=== PATIENT | female | born 1985 | race Hispanic/Latino ===

== ENCOUNTER 2017-10-11 17:45 | Emergency (ER) | payer SELFPAY | END 2017-10-11 17:47 | disposition home or self-care (01) | LOC: ERS 17:45 | DX: L03.116 Cellulitis of left lower limb (principal) | CPT/HCPCS: 99282 ==

== ENCOUNTER 2018-07-27 19:47 | Inpatient (IN) | payer SELFPAY ==
[2018-07-27] MEDS ORDERED: Piperacillin/Tazobactam 4.5 GM VIAL ONE (20:19)
[2018-07-27 20:39] LABS: #Lymphocytes 1.1 thou/uL (1.20-3.40); #Monocytes 0.6 thou/uL (0.11-0.59); #Neutrophils 9.7 thou/uL (1.40-6.50); %Basophils 0.4 % (0.0-1.0); %Eosinophils 0.1 % (0.0-10.0); %Lymphocytes 9.7 % (21.0-51.0); %Monocytes 5.2 % (0.0-10.0); %Neutrophils 84.6 % (42.0-75.0); Mean Corpuscular HGB CONC 32.3 g/dL (32.0-36.0); Mean Corpuscular Hemoglobin 28.7 pg (27.0-31.0); Mean Corpuscular Volume 88.8 fL (78.0-98.0); Mean Platelet Volume 8.3 fL (7.4-10.4); Platelet Count 189 thou/uL (130-400); RBC Distribution Width 13.2 % (11.5-14.5); Red Blood Cell (RBC) Count 5.22 mill/uL (4.20-5.40); White Blood Cell (WBC) Count 11.4 thou/uL (4.8-10.8)
--- NOTE | 2018-07-27 20:40 | RAD ---
AP view chest. HISTORY: Chest and abdominal pain. AP view chest is obtained. Cardiomegaly seen. Pulmonary vascular congestion seen. No definite evidenc e of effusion seen. Exam is limited due to the patient's large body habitus. IMPRESSION: Cardiomegaly and pulmonary vascular congestion.
[2018-07-27 20:44] LABS: BHCG - Serum Negative (NEGATIVE); Pregs Control Background? CLEAR/WHITE (CLR/WHITE); Pregs Control Bar Appear? YES (CONTROL BAR)
[2018-07-27 21:00] LABS: Bilirubin Small (Negative); Blood, Urine Negative (Negative); Clarity CLOUDY (Clear); Glucose, Urine (Dipstick) Negative (Negative); Leukocyte Negative (Negative); Nitrite Negative (Negative); Protein, Urine (Dipstick) 100 mg/dL (Neg-Trace); Specific Gravity, Urine 1.021 (1.002-1.036); pH, Urine 5.5 (5.0-9.0)
[2018-07-27 21:01] LABS: ALT (SGPT) 39 U/L (8-55); AST (SGOT) 27 U/L (5-34); Albumin 3.7 g/dL (3.5-5.0); Alkaline Phosphatase 57 U/L (40-150); Anion Gap 10 mmol/L (10-20); BUN (Urea Nitrogen) 9 mg/dL (7.0-18.7); Bilirubin, Total 1.2 mg/dL (0.2-1.2); Calc. Creatinine Clearance 0 mL/min (70-130); Calcium 9.2 mg/dL (7.8-10.44); Carbon Dioxide 33 mmol/L (22-29); Chloride 98 mmol/L (98-107); Estimated GFR-MDRD 87; Globulin 4.2 g/dL (2.4-3.5); Glucose 106 mg/dL (70-105); Potassium 3.6 mmol/L (3.5-5.1); Protein, Total 7.9 g/dL (6.0-8.3); Sodium 137 mmol/L (136-145)
[2018-07-27 21:03] LABS: Bacteria/HPF None Seen HPF (None Seen); Hyaline Casts/LPF 7-10 HYALINE CAST LPF (0-3 Hyaline); Pathc Cast-AUWi Flag 1.08 (0-2.49); RBC/HPF 0-3 HPF (0-3); Squamous Epithelial 0-3 HPF (0-3); WBC/HPF 0-3 HPF (0-3)
[2018-07-27 21:12] LABS: Thyroid Stimulating Hormone 1.5677 uIU/mL (0.35-4.94)
[2018-07-27] MEDS ORDERED: Acetaminophen 650 MG Suppository PR PRN (22:38)
[2018-07-27] MEDS ORDERED: Acetaminophen 325 MG TAB PO PRN (22:38)
[2018-07-27] MEDS ORDERED: Ondansetron PF 4 MG/2 ML Vial IVP PRN (22:38)
[2018-07-27] MEDS ORDERED: Ondansetron ODT 4 MG TAB PO PRN (22:38)
--- NOTE | 2018-07-28 00:32 | HP ---
PRIMARY CARE PHYSICIAN: None reported. CODE STATUS: Full code. TIME OF EVALUATION: 10:10 p.m. CHIEF COMPLAINT: Abdominal pain and redness, and fever. HISTORY OF PRESENT ILLNESS: This is a 33-year-old female patient with past medical history of morbid obesity. The patient is almost unable to walk due to her weight, who weighed 120 kg, came to the hospital after having significant redness, swelling, tumefaction, change in skin texture in all the lower abdomen area. The patient has 2 different small ulcerations. She does not recall what happened and she stated that this has been going on for the past 2 days. It is associated with tenderness, reportedly 7/10. REVIEW OF SYSTEMS: CONSTITUTIONAL: The patient has fever, chills, generalized weakness. RESPIRATORY: No cough, sputum production, or shortness of breath. CARDIOVASCULAR: No chest pain or palpitation. GASTROINTESTINAL: No nausea, vomiting, or diarrhea. No abdominal pain. CLINICAL NURSE LEADER: No dizziness, headache, or feeling lightheaded. GENITOURINARY: No burning on urination. EXTREMITIES: No leg swelling. SKIN: The patient has significant redness, tumefaction, change in texture in the lower abdominal area. All other systems were reviewed and negative except for the findings mentioned above. PAST MEDICAL HISTORY: As mentioned in the HPI. PAST SURGICAL HISTORY: The patient has history of and tubal ligation. PSYCHIATRIC HISTORY: No previous psych history. SOCIAL HISTORY: The patient denies alcohol use. No drug use. No smoking history. FAMILY HISTORY: Reviewed and noncontributory for current presentation. KNOWN ALLERGIES: No known drug allergies. REPORTED MEDICATIONS: None. PHYSICAL EXAMINATION: VITAL SIGNS: On presentation; blood pressure 133/81 with heart rate 114, respiratory rate was 22, and temperature 99.1. GENERAL APPEARANCE: The patient is morbidly obese and almost unable to mobilize herself. She is alert, oriented, not in acute distress. HEAD, EYES, EARS, NOSE, AND THROAT: Eyes, normal conjunctivae. Moist oral mucosa. Anicteric. No JVD. RESPIRATORY: Bilateral air entry. No rales. No wheezes. Symmetric expansion. CARDIOVASCULAR: Normal rate, regular rhythm. No murmurs. No gallop. No edema. ABDOMEN: The patient is morbidly obese with significant abdominal fat. The patient has redness, tumefaction, change in the skin texture and nonhealing ulcers in the lower abdominal area. The area is large and measures probably about 10 to 12 inches, is tender. MUSCULOSKELETAL: Baseline range of motion and strength. No tenderness. The patient has bilateral lower extremity skin texture changes and some edema. SKIN: Please see the description above. Peripheral pulses are present. Capillary refill seems to be intact. NEURO: No evidence of any new focal weakness. Baseline speech. Cranial nerves seem to be intact. PSYCH: The patient is in good mood. No anxiety. Optimal judgment. DIAGNOSTIC STUDIES: EKG was reviewed. The patient has sinus tachycardia at the rate of 104, [place] 154, QRS 62, QT corrected 439, low-voltage QRS. LABORATORY DATA: Labs were reviewed. The patient has a white count 11.4, MCV 88.8, platelet count 189. Chemistry; sodium 137, potassium 3.6, chloride 98, carbon dioxide 33, anion gap 10, BUN 9, creatinine 0.76, GFR 87, glucose 106. Lactic acid 1.9. LFTs were negative. Globulin 4.2. TSH 1.5. Albumin to globulin ratio 0.9. Urine was done and was negative. IMAGING STUDIES: Chest x-ray was done, she has cardiomegaly and pulmonary vascular congestion. ASSESSMENT AND PLAN: The patient will be placed in the hospital with following medical problems: 1. Morbidly obese, weight loss is advised. The patient may need medical assistance for this reason, due to morbid BMI. 2. Abdominal wall cellulitis that is extensive, has nonhealing ulcers. We will place on antibiotics. We will monitor. We have arranged to see the patient can have an open CT of the abdomen to see if there is any deep tissue involvement in the current presentation. If that is the case, then we may need to consult Surgery for any further recommendations. 3. Deep venous thrombosis prophylaxis. Job ID: [id number] MTDD
[2018-07-28 02:25] VITALS: BMI 51.5
[2018-07-28] MEDS: Vancomycin HCl 1 GM in Premix Bag 1 BAG IVPB SCH ×2 (04:00→04:14)
[2018-07-28] MEDS: Piperacillin/Tazobactam 4.5 GM in Sodium Chloride 0.9% 100 ML IVPB SCH ×3 (05:27→21:13)
[2018-07-28] MEDS: Enoxaparin Sodium 40 MG/0.4 ML SYRINGE SC SCH (08:35)
[2018-07-28 10:00] LABS: #Eosinphils 0.1 thou/uL (0.0-0.7); #Lymphocytes 1.1 thou/uL (1.20-3.40); #Monocytes 0.6 thou/uL (0.11-0.59); #Neutrophils 6.8 thou/uL (1.40-6.50); %Basophils 0.1 % (0.0-1.0); %Eosinophils 0.9 % (0.0-10.0); %Lymphocytes 12.4 % (21.0-51.0); %Monocytes 7.2 % (0.0-10.0); %Neutrophils 79.4 % (42.0-75.0); Hemoglobin 14.2 g/dL (12.0-16.0); Mean Corpuscular HGB CONC 31.4 g/dL (32.0-36.0); Mean Corpuscular Hemoglobin 28.5 pg (27.0-31.0); Mean Corpuscular Volume 90.6 fL (78.0-98.0); Mean Platelet Volume 8.4 fL (7.4-10.4); Platelet Count 177 thou/uL (130-400); RBC Distribution Width 13.3 % (11.5-14.5); Red Blood Cell (RBC) Count 4.99 mill/uL (4.20-5.40); White Blood Cell (WBC) Count 8.6 thou/uL (4.8-10.8)
[2018-07-28 10:21] LABS: Anion Gap 11 mmol/L (10-20); BUN (Urea Nitrogen) 7 mg/dL (7.0-18.7); Calc. Creatinine Clearance 215 mL/min (70-130); Calcium 8.8 mg/dL (7.8-10.44); Carbon Dioxide 30 mmol/L (22-29); Chloride 98 mmol/L (98-107); Estimated GFR-MDRD Greater than 90; Glucose 129 mg/dL (70-105); Potassium 3.6 mmol/L (3.5-5.1); Sodium 135 mmol/L (136-145)
[2018-07-28] MEDS: Vancomycin HCl 1.75 GM in Sodium Chloride 0.9% 500 ML IVPB SCH ×2 (11:52→23:38)
--- NOTE | 2018-07-28 14:56 | PDOC.PN ---
- Subjective Encounter Start Date: 07/28/18 Encounter Start Time: 14:50 Subjective: f/u for abdominal wall cellulitis on Vanc/Zosyn. No new complaints. - Objective Resuscitation Status - Order Detail: 07/27/18 22:38 Resuscitation Status Routine Resuscitation Status: FULL: Full Resuscitation MAR Reviewed: Yes Vital Signs & Weight: Vital Signs (12 hours) Temp Pulse Resp BP BP Pulse Ox 07/28/18 08:35 94 L 07/28/18 07:15 99.1 F 91 22 H 141/71 H 94 L 07/28/18 06:47 97.6 F 81 18 129/83 95 Weight Weight 264 lb 0.057 oz I&O: 07/27/18 07/28/18 07/29/18 06:59 06:59 06:59 Intake Total 800 Balance 800 Result Diagrams: 07/28/18 09:36 07/28/18 09:36 Additional Labs: Microbiology 07/27/18 20:26 Venous blood - Right Hand Blood Culture - Preliminary Specimen has been received and culture in progress. No Growth to date. 07/27/18 20:26 Venous blood - Left Arm Blood Culture - Preliminary Specimen has been received and culture in progress. No Growth to date. Laboratory Tests 07/27/18 07/27/18 07/27/18 20:26 20:26 20:26 WBC 11.4 H Neutrophils % 84.6 H Lactic Acid B-Natriuretic Peptide 44.8 TSH 3rd Generation 1.5677 Serum , Qual Negative 07/27/18 07/28/18 20:28 09:36 WBC Neutrophils % 79.4 H Lactic Acid 1.8 B-Natriuretic Peptide TSH 3rd Generation Serum , Qual Radiology Reviewed by me: Yes (PCXR - pulm vasc prominence, cardiomegaly) Phys Exam - Physical Examination Constitutional: NAD HEENT: PERRLA, moist MMs, sclera anicteric, oral pharynx no lesions Neck: no nodes, no JVD, supple, full ROM Respiratory: no wheezing, no rales, no rhonchi, clear to auscultation bilateral S1, S2 Cardiovascular: RRR, no significant murmur, no rub, gallop morbidly obese, pannus with diffuse erythema, excoriations, dimpling Gastrointestinal: soft, no distention, positive bowel sounds Musculoskeletal: no edema, pulses present Neurological: normal sensation, moves all 4 limbs Psychiatric: A&O x 3 Skin: normal turgor, cap refill <2 seconds Dx/Plan (1) Abdominal wall cellulitis Code(s): L03.311 - CELLULITIS OF ABDOMINAL WALL Status: Acute Comment: Continue Vanc/Zosyn, pain control, encourage weight loss (2) Hyperglycemia Code(s): R73.9 - HYPERGLYCEMIA, UNSPECIFIED Status: Acute Comment: Serial monitoring, check A1C level (3) Elevated blood pressure reading Code(s): R03.0 - ELEVATED BLOOD-PRESSURE READING, W/O DIAGNOSIS OF HTN Status : Acute Comment: Continue serial BP monitoring (4) Morbid obesity Code(s): E66.01 - MORBID (SEVERE) OBESITY DUE TO EXCESS CALORIES Status: Chronic Comment: Encourage weight loss strategy - Plan plan discussed w/ family, continue antibiotics, social worker delinquency prevention, out of bed/ ambulate, DVT proph w/SCDs Stable currently -: Continue Vancomycin/Zosyn -: Weight loss options -: Serial BP monitoring -: AM lab: BMP, CBC, A1C * .
[2018-07-29] MEDS: Piperacillin/Tazobactam 4.5 GM in Sodium Chloride 0.9% 100 ML IVPB SCH ×3 (04:30→23:36)
[2018-07-29 05:28] LABS: Hemoglobin A1c 5.9 % (4.0-6.0)
[2018-07-29 05:43] LABS: Anion Gap 10 mmol/L (10-20); BUN (Urea Nitrogen) 10 mg/dL (7.0-18.7); Calc. Creatinine Clearance 209 mL/min (70-130); Calcium 8.9 mg/dL (7.8-10.44); Carbon Dioxide 29 mmol/L (22-29); Chloride 100 mmol/L (98-107); Estimated GFR-MDRD Greater than 90; Glucose 117 mg/dL (70-105); Potassium 4.1 mmol/L (3.5-5.1); Sodium 135 mmol/L (136-145)
[2018-07-29 05:58] LABS: Band 20 % (5-11); Eosinophils 3 % (0-10); Hemoglobin 13.7 g/dL (12.0-16.0); Lymphocytes 15 % (21-51); MDiff Complete? YES; Mean Corpuscular HGB CONC 30.6 g/dL (32.0-36.0); Mean Corpuscular Volume 91.2 fL (78.0-98.0); Mean Platelet Volume 8.6 fL (7.4-10.4); Monocytes 6 % (0-10); Neutrophil 56 % (42-75); Platelet Count 186 thou/uL (130-400); Red Blood Cell (RBC) Count 4.89 mill/uL (4.20-5.40); White Blood Cell (WBC) Count 8.5 thou/uL (4.8-10.8)
[2018-07-29] MEDS: Enoxaparin Sodium 40 MG/0.4 ML SYRINGE SC SCH (08:00)
[2018-07-29] MEDS ORDERED: Nystatin Powder 15 GM BOT TOP PRN (09:28)
[2018-07-29 11:47] LABS: Vancomycin, Trough 7.3 ug/mL
[2018-07-29] MEDS: Vancomycin HCl 1.75 GM in Sodium Chloride 0.9% 500 ML IVPB SCH ×2 (11:50→20:38)
--- NOTE | 2018-07-29 12:36 | PDOC.PN ---
- Subjective Encounter Start Date: 07/29/18 Encounter Start Time: 12:35 Subjective: f/u for abd wall cellulitis on Zosyn/Vancomycin. No new complaints. - Objective Resuscitation Status - Order Detail: 07/27/18 22:38 Resuscitation Status Routine Resuscitation Status: FULL: Full Resuscitation MAR Reviewed: Yes Vital Signs & Weight: Vital Signs (12 hours) Temp Pulse Resp BP Pulse Ox 07/29/18 11:42 98.1 F 82 20 155/91 H 93 L 07/29/18 08:00 100.3 F H 97 20 153/71 H 94 L 07/29/18 04:00 99.8 F H 98 20 136/86 92 L 07/29/18 01:30 98.3 F 93 20 124/84 92 L Weight Weight 264 lb 0.057 oz I&O: 07/28/18 07/29/18 07/30/18 06:59 06:59 06:59 Intake Total 800 2610 Balance 800 2610 Result Diagrams: 07/29/18 05:12 07/29/18 05:12 Additional Labs: Microbiology 07/27/18 20:26 Venous blood - Right Hand Blood Culture - Preliminary Specimen has been received and culture in progress. No Growth to date. 07/27/18 20:26 Venous blood - Left Arm Blood Culture - Preliminary Specimen has been received and culture in progress. No Growth to date. Laboratory Tests 07/27/18 07/27/18 07/27/18 20:26 20:26 20:26 WBC 11.4 H Neutrophils % 84.6 H Lactic Acid B-Natriuretic Peptide 44.8 TSH 3rd Generation 1.5677 Serum , Qual Negative 07/27/18 07/28/18 20:28 09:36 WBC Neutrophils % 79.4 H Lactic Acid 1.8 B-Natriuretic Peptide TSH 3rd Generation Serum , Qual Laboratory Tests 07/29/18 07/29/18 05:12 11:11 Hemoglobin A1c 5.9 Vancomycin Trough 7.3 Phys Exam - Physical Examination Constitutional: NAD HEENT: PERRLA, sclera anicteric, oral pharynx no lesions Neck: no nodes, no JVD, supple, full ROM Respiratory: no wheezing, no rales, no rhonchi, clear to auscultation bilateral S1, S2 Cardiovascular: RRR, no significant murmur, no rub, gallop morbidly obese diffuse pannus erythema Gastrointestinal: soft, no distention, positive bowel sounds Musculoskeletal: pulses present, edema present Neurological: normal sensation, moves all 4 limbs Psychiatric: A&O x 3 Skin: normal turgor, cap refill <2 seconds Dx/Plan (1) Abdominal wall cellulitis Code(s): L03.311 - CELLULITIS OF ABDOMINAL WALL Status: Acute Comment: Continue Vanc/Zosyn, pain control, encourage weight loss (2) Hyperglycemia Code(s): R73.9 - HYPERGLYCEMIA, UNSPECIFIED Status: Acute Comment: Serial monitoring, A1C level 5.9 (3) Elevated blood pressure reading Code(s): R03.0 - ELEVATED BLOOD-PRESSURE READING, W/O DIAGNOSIS OF HTN Status : Acute Comment: Continue serial BP monitoring (4) Morbid obesity Code(s): E66.01 - MORBID (SEVERE) OBESITY DUE TO EXCESS CALORIES Status: Chronic Comment: Encourage weight loss strategy - Plan continue antibiotics, psychotherapist social worker, out of bed/ambulate, DVT proph w/SCDs Stable currently -: Continue Zosyn/Vancomycin -: Nystatin pwd TID PRN -: Serial BP monitoring -: ? D/C in 24-48h * .
[2018-07-30] MEDS: Vancomycin HCl 1.75 GM in Sodium Chloride 0.9% 500 ML IVPB SCH ×3 (03:28→20:48)
[2018-07-30] MEDS: Piperacillin/Tazobactam 4.5 GM in Sodium Chloride 0.9% 100 ML IVPB SCH ×3 (05:28→23:41)
[2018-07-30] MEDS: Enoxaparin Sodium 40 MG/0.4 ML SYRINGE SC SCH (08:18)
[2018-07-30 12:08] LABS: Vancomycin, Trough 14.4 ug/mL
--- NOTE | 2018-07-30 17:02 | PDOC.PN ---
- Subjective Encounter Start Date: 07/30/18 Encounter Start Time: 14:40 Ms. Johnson was seen today in follow-up of Abdominal wall cellulitis. She is feeling better and has less pain. - Objective Resuscitation Status - Order Detail: 07/27/18 22:38 Resuscitation Status Routine Resuscitation Status: FULL: Full Resuscitation MAR Reviewed: Yes Vital Signs & Weight: Vital Signs (12 hours) Temp Pulse Resp BP Pulse Ox 07/30/18 08:00 90 L 07/30/18 07:42 99.3 F 92 16 132/70 90 L Weight Weight 264 lb 0.057 oz I&O: 07/29/18 07/30/18 07/31/18 06:59 06:59 06:59 Intake Total 2610 1600 Balance 2610 1600 Result Diagrams: 07/29/18 05:12 07/29/18 05:12 Phys Exam - Physical Examination HEENT: PERRLA Cardiovascular: RRR, no significant murmur, no rub Gastrointestinal: soft, non-tender, no distention, positive bowel sounds Musculoskeletal: pulses present, edema present Deviation from normal: + erythema, and induration of the lower right abdominal wall, mild warmth Dx/Plan (1) Abdominal wall cellulitis Code(s): L03.311 - CELLULITIS OF ABDOMINAL WALL Status: Acute Comment: Continue Vanc/Zosyn, pain control, encourage weight loss (2) Morbid obesity Code(s): E66.01 - MORBID (SEVERE) OBESITY DUE TO EXCESS CALORIES Status: Chronic Comment: Encourage weight loss strategy - Plan * Abdominal wall cellulitis- this is fairly extensive, but is improving. Will treat one more day with IV antibiotics * Morbid Life threatening Obesity- will consult principal java developer for calorie restriction meal plan.
[2018-07-31] MEDS: Vancomycin HCl 1.75 GM in Sodium Chloride 0.9% 500 ML IVPB SCH ×2 (04:50→11:46)
[2018-07-31] MEDS: Piperacillin/Tazobactam 4.5 GM in Sodium Chloride 0.9% 100 ML IVPB SCH ×2 (06:52→14:17)
[2018-07-31] MEDS: Enoxaparin Sodium 40 MG/0.4 ML SYRINGE SC SCH (07:53)
[2018-07-31 12:00] LABS: Vancomycin, Trough 18.7 ug/mL
--- NOTE | 2018-07-31 12:48 | PDOC.PN ---
- Subjective Encounter Start Date: 07/31/18 Encounter Start Time: 12:41 Ms. Johnson was seen today in follow-up of abdominal wall cellulitis. She does not have any new complaints. - Objective Resuscitation Status - Order Detail: 07/27/18 22:38 Resuscitation Status Routine Resuscitation Status: FULL: Full Resuscitation MAR Reviewed: Yes Vital Signs & Weight: Vital Signs (12 hours) Temp Pulse Resp BP BP Pulse Ox 07/31/18 11:34 97.9 F 72 20 131/85 94 L 07/31/18 08:00 98.2 F 73 18 144/80 H 94 L 07/31/18 01:30 92 L 07/31/18 01:00 98.0 F 79 16 136/82 76 L Weight Weight 264 lb 0.057 oz I&O: 07/30/18 07/31/18 08/01/18 06:59 06:59 06:59 Intake Total 1600 Balance 1600 Result Diagrams: 07/29/18 05:12 07/29/18 05:12 Phys Exam - Physical Examination HEENT: PERRLA Respiratory: no wheezing, no rales, no rhonchi, clear to auscultation bilateral Cardiovascular: RRR, no significant murmur, no rub Gastrointestinal: soft + mild induration and erythema Musculoskeletal: pulses present, edema present Dx/Plan (1) Abdominal wall cellulitis Code(s): L03.311 - CELLULITIS OF ABDOMINAL WALL Status: Acute Comment: Continue Vanc/Zosyn, pain control, encourage weight loss (2) Morbid obesity Code(s): E66.01 - MORBID (SEVERE) OBESITY DUE TO EXCESS CALORIES Status: Chronic Comment: Encourage weight loss strategy - Plan * Cellulitis- improved - She is clinically stable for discharge. * Obesity- discussed calorie restricted diet, information was given .
[2018-07-31 17:03] VITALS: BP 137/85; TEMP 98.2
--- NOTE | 2018-08-01 00:40 | DIS ---
DATE OF ADMISSION: 07/28/2018 DATE OF DISCHARGE: 07/31/2018 PRIMARY CARE PHYSICIAN: Dr. Bria Rich. DISCHARGE DISPOSITION: Home. PRIMARY DISCHARGE DIAGNOSES: 1. Abdominal wall cellulitis. 2. Morbid obesity with a BMI of 51.6. DISCHARGE MEDICATIONS: Augmentin 875 mg one p.o. twice a day for 10 days followed by penicillin VK 250 mg t.i.d. for 1 month. CODE STATUS: Full code. ALLERGIES: NO KNOWN DRUG ALLERGIES. HOSPITAL COURSE: Ms. Johnson is a pleasant 33-year-old female who came to the emergency room due to swelling and redness on the abdominal wall. She also had a fever. She was found to have abdominal wall cellulitis. She was started on IV antibiotics and her symptoms improved over the course of the next couple of days. She has morbid life-threatening obesity. She is 5 feet tall and 264 pounds with a BMI of 51.6. A dietitian consult was done and the patient was given information on a calorie restricted diet and will be discharged home today and she was instructed to have close outpatient followup. Job ID: [id number]
== END 2018-07-31 17:39 | disposition home or self-care (01) | DRG 603 ==
LOC: ERS 19:47 → T4-B 07-28 02:18
PROVIDERS: ADMIT Hospitalist; ATTEND Hospitalist
DX: L03.311 Cellulitis of abdominal wall (principal); Z68.43 Body mass index [BMI] 50.0-59.9, adult; E66.01 Morbid (severe) obesity due to excess calories; R73.9 Hyperglycemia, unspecified; R03.0 Elevated blood-pressure reading, without diagnosis of hypertension; Z98.51 Tubal ligation status
CPT/HCPCS: 36415; 36416; 51701; 71045; 80048; 80053; 80202; 81003; 81015; 83036; 83605; 83880; 84443; 84703; 85007; 85025; 85027; 87040; 93005; 96361; 96365; 96367; A4353; J1650; J2543; J3370; J3490; J7050

== ENCOUNTER 2019-02-01 16:44 | Inpatient (IN) | payer SELFPAY ==
[2019-02-01 17:15] LABS: Mean Corpuscular HGB CONC 32.3 g/dL (32.0-36.0); Mean Corpuscular Hemoglobin 28.6 pg (27.0-31.0); Mean Corpuscular Volume 88.7 fL (78.0-98.0); Platelet Count 189 thou/uL (130-400); RBC Distribution Width 14.1 % (11.5-14.5); Red Blood Cell (RBC) Count 5.25 mill/uL (4.20-5.40); White Blood Cell (WBC) Count 21.8 thou/uL (4.8-10.8)
[2019-02-01] MEDS ORDERED: Acetaminophen 500 MG TAB ONE (17:22)
[2019-02-01 17:32] LABS: Band 45 % (5-11); Eosinophils 1 % (0-10); Lymphocytes 4 % (21-51); MDiff Complete? YES; Metamyelocyte 7 % (0-0); Monocytes 2 % (0-10); Myelocyte 1 % (0-0); Neutrophil 40 % (42-75); Platelet Morphology Comment Appears Adequate; RBC Morphology Normal; Reflex for Review?? YES; Vacuoles SLIGHT
[2019-02-01 17:44] LABS: ALT (SGPT) 37 U/L (8-55); AST (SGOT) 39 U/L (5-34); Albumin 3.3 g/dL (3.5-5.0); Alkaline Phosphatase 86 U/L (40-110); Anion Gap 16 mmol/L (10-20); BUN (Urea Nitrogen) 15 mg/dL (7.0-18.7); Bilirubin, Total 0.8 mg/dL (0.2-1.2); Calc. Creatinine Clearance 0 mL/min (70-130); Calcium 8.8 mg/dL (7.8-10.44); Carbon Dioxide 25 mmol/L (22-29); Chloride 97 mmol/L (98-107); Estimated GFR-MDRD 59; Globulin 5.1 g/dL (2.4-3.5); Glucose 122 mg/dL (70-105); Potassium 4.6 mmol/L (3.5-5.1); Protein, Total 8.4 g/dL (6.0-8.3); Sodium 133 mmol/L (136-145)
[2019-02-01] MEDS ORDERED: Piperacillin/Tazobactam 3.375 GM VIAL ONE (19:33)
[2019-02-01 20:18] LABS: Lactic Acid 1.4 mmol/L (0.5-2.2)
[2019-02-01] MEDS ORDERED: Clindamycin/D5W 600 mg/50 ml Premix Bag ONE (20:26)
--- NOTE | 2019-02-01 21:33 | PDOC.FPRHP ---
- History of Present Illness Chief Complaint: Cellulitis History of Present Illness: Pt is a 34 yo F with history of Obesity who presents with subjective fevers and rash on abdomen. She states she started having a fever on . She felt warm to touch and she was fatigued. She continued to have fevers. She developed a rash on Sunday around noon and she said some places on her abdomen began to ooze. She had a fever again today. She took an Advil this afternoon, but continued to fever, so she decided to come to the hospital. She had a Staph infection in July where she was hospitalized for 1 week. ED Course: She received Vanc, Zosyn, and Clinda in the ED. He received 4 liters bolus. - Allergies/Adverse Reactions Allergies Allergy/AdvReac Type Severity Reaction Status Date / Time No Known Allergies Allergy Verified 02/01/19 23:08 - Home Medications Medication Instructions Recorded Confirmed Type No Known 02/01/19 02/01/19 History - History PMHx:Obesity PSHx: x4 FHx: Daughter- has no thyroid Social: Denies smoking, alcohol, drug use Allergies: NKDA - Review of Systems General: reports: fever/chills, fatigue Eyes: denies: vision changes ENT: denies: rhinorrhea Respiratory: denies: cough, shortness of breath Cardiovascular: denies: chest pain Gastrointestinal: denies: nausea, vomiting, abdominal pain Genitourinary: denies: dysuria Skin: reports: rashes, lesions Musculoskeletal: denies: pain, stiffness Neurological: denies: numbness, weakness - Vital signs BP: 102/71 HR: 102 RR: 20 Tmax: Pox: 96% on RA Wt: 208 kg - Physical Exam Constitutional: NAD, awake, alert and oriented HEENT: normocephalic and atraumatic, PERRLA, EOMI, normal nasal mucosa, MMM, oropharynx clear Neck: supple, trachea midline Heart: RRR, normal S1/S2, pulses present Lungs: CTAB Abdomen: soft -Abdomen: mild TTP Musculoskeletal: normal structure, normal tone Neurological: CN II-XII intact Skin: good turgor, capillary refill <2 seconds -Skin: Line of erythema above the umbilicus with pustules present without drainage. Stage 1 and Stage 2 ulcerations present on the buttocks. Heme/Lymphatic: no unusual bruising or bleeding, no petechia Psychiatric: normal mood and affect FMR H&P: Results - Labs Result Diagrams: 02/02/19 05:10 02/02/19 05:10 Lab results: WBC 21.8 thou/uL (4.8-10.8) H 02/01/19 17:00 Hgb 15.0 g/dL (12.0-16.0) 02/01/19 17:00 Hct 46.6 % (36.0-47.0) 02/01/19 17:00 MCV 88.7 fL (78.0-98.0) 02/01/19 17:00 Plt Count 189 thou/uL (130-400) 02/01/19 17:00 Band Neuts % (Manual) 45 % (5-11) H 02/01/19 17:00 Sodium 133 mmol/L (136-145) L 02/01/19 17:00 Potassium 4.6 mmol/L (3.5-5.1) 02/01/19 17:00 Chloride 97 mmol/L (98-107) L 02/01/19 17:00 Carbon Dioxide 25 mmol/L (22-29) 02/01/19 17:00 BUN 15 mg/dL (7.0-18.7) 02/01/19 17:00 Creatinine 1.06 mg/dL (0.6-1.1) 02/01/19 17:00 Glucose 122 mg/dL (70-105) H 02/01/19 17:00 Lactic Acid 1.4 mmol/L (0.5-2.2) 02/01/19 19:53 Calcium 8.8 mg/dL (7.8-10.44) 02/01/19 17:00 Total Bilirubin 0.8 mg/dL (0.2-1.2) 02/01/19 17:00 AST 39 U/L (5-34) H 02/01/19 17:00 ALT 37 U/L (8-55) 02/01/19 17:00 Alkaline Phosphatase 86 U/L (40-110) 02/01/19 17:00 C-Reactive Protein 36.58 mg/dL (= or < 0.5) H 02/01/19 17:00 Serum Total Protein 8.4 g/dL (6.0-8.3) H 02/01/19 17:00 Albumin 3.3 g/dL (3.5-5.0) L 02/01/19 17:00 FMR H&P: A/P - Problem List (1) Sepsis Current Visit: Yes Status: Acute Code(s): A41.9 - SEPSIS, UNSPECIFIED ORGANISM (2) Abdominal wall cellulitis Current Visit: No Status: Acute Code(s): L03.311 - CELLULITIS OF ABDOMINAL WALL Comment: Continue Vanc/Zosyn, pain control, encourage weight loss (3) Morbid obesity Current Visit: No Status: Chronic Code(s): E66.01 - MORBID (SEVERE) OBESITY DUE TO EXCESS CALORIES Comment: Encourage weight loss strategy - Plan Pt is a 34 yo F with history of Obesity who presents with subjective fevers and rash on abdomen. 1. Sepsis WBC: 21, Tachycardic, Febrile: 104 * Given 4 L of bolus in the ER * Being treated for cellulitis * Vitals Q4H * Will Monitor CBC 2. Cellulitis of the Abdomen Erythema just above the umbilicus with pustules without Drainage * Recieved Vanc, Zosyn, and Clinda in the ED * Will continue Vanc and Zosyn * Concern for possible Nec Fascia and could not obtain a CT; however, Dr. Barclay and Dr. Syed both evaluated and agreed that is unlikely * Will trend procal 3. Mild Hyponatremia Na: 133 * On NS 125 ml/h * Will monitor * No symptoms 4. Morbid Obesity * PT/OT to evaluate and treat * HHLSo diet * Diet Consult ordered Lines: Peripheral, NS 125 Diet: HHLSo Code Status: Full DVT PPx: Lovenox 40, SCDs Dispo: Inpt. LOS < 48H. Will monitor vitals. FMR H&P: Upper Level - Plan Date/Time: 02/01/192128 34 yo f with pmhx of morbid obesity, decreased mobility, and hx of cellulitis presents with abdominal redness, pain, and fever for 3 days. Vitals: T:100.4 HR 110 RR 20 BP: 100/60s O2sat: 97% on 2L PE: NAD decreased breath sounds bilaterally 2/2 body habitus decreased heat sounds 2/2 body habitus diffuse erythema surrounding RLQ to LLQ from umbilicus down, TTP, no current abscesses, prior scars on abdomen from prior skin abscesses, CS incision present , morbid obesity present, abdominal obesity no LE edema Labs: 21 wbc CRP 36 A/P: Sepsis 2/2 abdominal cellulitis- -will admit and continue vanc and zosyn, will continue mIVF, will trend procal Morbid obesity- -will [employer] on dietary changes, but pt would benefit from a GI consult outpatient for bariatric surgery. However, I think this would be a financial burden as she is uninsured. -will order PT/OT for eval and treatment DVT ppx:lovenox Diet: HH CODE: full Olaf Reynolds MD, PGY-3 Addendum - Attending - Attending Attestation Date/Time: 02/02/19 1200 I personally evaluated the patient and discussed the management with night team. I agree with the History, Examination, Assessment and Plan documented above with any addition or exceptions noted below. Patient in no distress and comfortable. Large abdominal cellulitis with [place] changes, NTTP. IV antibiotics Would consider suppressive therapy after this treatment.
[2019-02-01] MEDS ORDERED: Senokot S 8.6-50 MG TAB PO PRN (21:55)
[2019-02-01] MEDS ORDERED: Calcium Carbonate 500 MG ChewTAB PO PRN (21:55)
[2019-02-01] MEDS ORDERED: Acetaminophen 325 MG TAB PO PRN (21:55)
[2019-02-01 23:08] VITALS: BMI 81.2
[2019-02-01] MEDS: Sodium Chloride 0.9% 1,000 ML IV SCH (23:19)
[2019-02-01] MEDS ORDERED: Vancomycin HCl 1 GM in Premix Bag 1 BAG IVPB SCH (23:59)
[2019-02-02] MEDS: Piperacillin/Tazobactam 3.375 GM in Sodium Chloride 0.9% 100 ML IVPB SCH ×4 (02:28→19:42)
[2019-02-02] MEDS: Sodium Chloride 0.9% 1,000 ML IV SCH (05:45)
[2019-02-02 06:05] LABS: Band 24 % (5-11); Hemoglobin 13.3 g/dL (12.0-16.0); Lymphocytes 9 % (21-51); MDiff Complete? YES; Mean Corpuscular HGB CONC 31.6 g/dL (32.0-36.0); Mean Corpuscular Hemoglobin 28.4 pg (27.0-31.0); Mean Corpuscular Volume 89.8 fL (78.0-98.0); Mean Platelet Volume 8.5 fL (7.4-10.4); Metamyelocyte 2 % (0-0); Monocytes 4 % (0-10); Neutrophil 61 % (42-75); Platelet Count 168 thou/uL (130-400); Platelet Morphology Comment Appears Adequate; RBC Morphology Normal; Red Blood Cell (RBC) Count 4.69 mill/uL (4.20-5.40)
[2019-02-02 06:09] LABS: ALT (SGPT) 32 U/L (8-55); AST (SGOT) 25 U/L (5-34); Albumin 2.9 g/dL (3.5-5.0); Alkaline Phosphatase 78 U/L (40-110); Anion Gap 9 mmol/L (10-20); BUN (Urea Nitrogen) 17 mg/dL (7.0-18.7); Bilirubin, Total 0.9 mg/dL (0.2-1.2); Calc. Creatinine Clearance 297 mL/min (70-130); Calcium 8.1 mg/dL (7.8-10.44); Carbon Dioxide 32 mmol/L (22-29); Chloride 100 mmol/L (98-107); Estimated GFR-MDRD 75; Globulin 4.1 g/dL (2.4-3.5); Glucose 123 mg/dL (70-105); Potassium 3.8 mmol/L (3.5-5.1); Sodium 137 mmol/L (136-145)
--- NOTE | 2019-02-02 06:58 | PDOC.FM ---
- Subjective Subjective: NAEO. Patient resting comfortably sitting up in bed. She was noted to be falling asleep during conversation, snoring, and periods of apnea. Patient denies pain. - Objective MAR Reviewed: Yes Vital Signs & Weight: Vital Signs (12 hours) Temp Pulse Resp BP BP Pulse Ox 02/02/19 04:00 98.4 F 99 20 104/67 94 L 02/01/19 23:00 96 02/01/19 22:30 97.5 F L 99 20 99/63 96 Weight Weight 208.1 kg I&O: 01/31/19 02/01/19 02/02/19 06:59 06:59 06:59 Intake Total 1565 Balance 1565 Result Diagrams: 02/02/19 05:10 02/02/19 05:10 Phys Exam - Physical Examination Constitutional: NAD morbid obesity HEENT: moist MMs, sclera anicteric Neck: supple Respiratory: clear to auscultation bilateral Cardiovascular: RRR, no significant murmur, no rub Gastrointestinal: soft erythema of pannus, areas of oozing Musculoskeletal: pulses present trace edema b/l LE Neurological: non-focal, moves all 4 limbs Psychiatric: normal affect Skin: no rash, normal turgor, cap refill <2 seconds Dx/Plan (1) Abdominal wall cellulitis Code(s): L03.311 - CELLULITIS OF ABDOMINAL WALL Status: Acute (2) Hyperglycemia Code(s): R73.9 - HYPERGLYCEMIA, UNSPECIFIED Status: Acute (3) Morbid obesity Code(s): E66.01 - MORBID (SEVERE) OBESITY DUE TO EXCESS CALORIES Status: Chronic - Plan Plan: Pt is a 34 yo F with history of Obesity who presents with subjective fevers and rash on abdomen. #Sepsis 2/2 cellulitis WBC: 21, Tachycardic, Febrile: 104. s/p 4 L of bolus in the ER. - Being treated for cellulitis with vanc/zosyn - Vitals Q4H - Will Monitor CBC. WBC downtrended to 18. Bands 24%. LA downtrending. Procal downtrending #Cellulitis of the Abdomen Erythema just above the umbilicus with pustules without Drainage. S/p Vanc, Zosyn, and Clinda in the ED. - Will continue Vanc and Zosyn - Concern for possible Nec Fascia and could not obtain a CT; however, Dr. Barclay and Dr. Syed both evaluated and agreed that is unlikely - Will trend procal - 9.8 -> 5.92 #Mild Hyponatremia Na: 133 -> 137. - On NS 125 ml/h. Will stop fluids. - Will monitor #Morbid Obesity - PT/OT to evaluate and treat - HHLSo diet - Diet Consult ordered - A1c pending #likely PRECIOUS - periods of apnea, snoring, and large neck girth - Will start CPAP at night Lines: Peripheral Diet: HHLSo Code Status: Full DVT PPx: Lovenox 40, SCDs Dispo: Inpt. LOS < 48H. Will monitor vitals. Case discussed with Dr. Syed. Addendum - Attending - Attending Attestation Date/Time: 02/02/19 7689 I personally evaluated the patient and discussed the management with the team. I agree with the History, Examination, Assessment and Plan documented above with any addition or exceptions noted below. She is tearful because of her inability to sleep well in the current bed. On exam her cellulitis is unchanged. Continue current therapy.
[2019-02-02] MEDS: Enoxaparin Sodium 40 MG/0.4 ML SYRINGE SC SCH (07:30)
[2019-02-02 07:43] LABS: Hemoglobin A1c 6.3 % (4.0-6.0)
[2019-02-02] MEDS ORDERED: FLU VACC QS2019-20(6MOS UP)/PF 60 MCG/0.5 ML SYRINGE IM ONE (21:00)
[2019-02-03] MEDS: Piperacillin/Tazobactam 3.375 GM in Sodium Chloride 0.9% 100 ML IVPB SCH ×4 (02:55→20:01)
--- NOTE | 2019-02-03 06:53 | PDOC.FM ---
- Subjective Subjective: Overnight, patient not able to tolerate CPAP mask at night. Put on NC. Otherwise NABEEL. No concerns per nursing. Patient resting comfortably in bed. States she does have some pain/tenderness to abdomen but controllable. - Objective MAR Reviewed: Yes Vital Signs & Weight: Vital Signs (12 hours) Temp Pulse Resp BP Pulse Ox 02/03/19 04:08 98.1 F 103 H 20 164/95 H 92 L 02/03/19 00:28 98.0 F 105 H 16 130/85 93 L 02/02/19 20:00 95 02/02/19 19:34 98.2 F 99 18 118/77 95 Weight Weight 208.1 kg I&O: 02/01/19 02/02/19 02/03/19 06:59 06:59 06:59 Intake Total 1565 2630 Output Total 1550 Balance 1565 1080 Result Diagrams: 02/02/19 05:10 02/02/19 05:10 Phys Exam - Physical Examination Constitutional: NAD morbidly obese HEENT: moist MMs, sclera anicteric Neck: supple Respiratory: clear to auscultation bilateral Cardiovascular: RRR, no significant murmur, no rub Gastrointestinal: soft mildly tender to palpation; distended Musculoskeletal: pulses present trace edema b/l LE Neurological: non-focal, moves all 4 limbs Psychiatric: normal affect Skin: normal turgor, cap refill <2 seconds Deviation from normal: erythema to lower abdomen, improving Dx/Plan (1) Abdominal wall cellulitis Code(s): L03.311 - CELLULITIS OF ABDOMINAL WALL Status: Acute (2) Hyperglycemia Code(s): R73.9 - HYPERGLYCEMIA, UNSPECIFIED Status: Acute (3) Morbid obesity Code(s): E66.01 - MORBID (SEVERE) OBESITY DUE TO EXCESS CALORIES Status: Chronic - Plan Plan: Pt is a 34 yo F with history of Obesity who presents with subjective fevers and rash on abdomen. #Sepsis 2/2 cellulitis of the abdomen WBC: 21, Tachycardic, Febrile: 104. s/p 4 L of bolus in the ER. Erythema just above the umbilicus with pustules without Drainage. S/p Vanc, Zosyn, and Clinda in the ED. Concern for possible Nec Fascia and could not obtain a CT; however, Dr. Barclay and Dr. Syed both evaluated and agreed that is unlikely. - Being treated for cellulitis with vanc/zosyn - Vitals Q4H - Will Monitor CBC. WBC downtrended to 18. Bands 24%. LA downtrending. Procal downtrending. - prelim B cx gram + cocci #Mild Hyponatremia Na: 133 -> 137. - On NS 125 ml/h. Will stop fluids. - Will monitor #Morbid Obesity - PT/OT to evaluate and treat - HHLSo diet - Diet Consult ordered - A1c 6.3, will advise lifestyle modifications. Possible bariatric surg outpatient, but patient without insurance. #likely PRECIOUS - periods of apnea, snoring, and large neck girth - Patient unable to tolerate CPAP mask and put on NC. Lines: Peripheral Diet: HHLSo Code Status: Full DVT PPx: Lovenox 40, SCDs Dispo: Inpt. LOS >48H. Will monitor vitals. Case discussed with Dr. Hernandez. Addendum - Attending - Attending Attestation Date/Time: 02/03/19 1102 I personally evaluated the patient and discussed the management with Dr. Johnson I agree with the History, Examination, Assessment and Plan documented above with any addition or exceptions noted below. Significant dependant pannus and intertrigo to groin will attempt elevate tissue and recommend nystain powder. Discussed morbid obesity,pre-diabetes and concern PRECIOUS with patient and significant other.
[2019-02-03] MEDS: Enoxaparin Sodium 40 MG/0.4 ML SYRINGE SC SCH (08:11)
[2019-02-03] MEDS ORDERED: Nystatin Powder 15 GM BOT TOP PRN (10:36)
[2019-02-03] MEDS: metFORMIN 500 MG TAB PO SCH ×3 (11:28→20:02)
[2019-02-03] MEDS ORDERED: Vancomycin 1.5 GRAM/300 ML BAG 1.5 GM in Premix Bag 1 BAG IVPB SCH (12:00)
[2019-02-03] MEDS: Vancomycin HCl 1.5 GM in Sodium Chloride 0.9% 250 ML 300 ML IVPB SCH ×2 (15:03→20:01)
[2019-02-03] MEDS ORDERED: metFORMIN 500 MG TAB PO SCH (17:00)
[2019-02-04] MEDS: Piperacillin/Tazobactam 3.375 GM in Sodium Chloride 0.9% 100 ML IVPB SCH ×4 (02:30→20:31)
[2019-02-04] MEDS: Vancomycin HCl 1.5 GM in Sodium Chloride 0.9% 250 ML 300 ML IVPB SCH (03:37)
[2019-02-04 07:22] LABS: Hemoglobin 13.2 g/dL (12.0-16.0); Mean Corpuscular HGB CONC 31.7 g/dL (32.0-36.0); Mean Corpuscular Hemoglobin 28.6 pg (27.0-31.0); Mean Corpuscular Volume 90.2 fL (78.0-98.0); Mean Platelet Volume 8.7 fL (7.4-10.4); Platelet Count 204 thou/uL (130-400); RBC Distribution Width 13.8 % (11.5-14.5); Red Blood Cell (RBC) Count 4.64 mill/uL (4.20-5.40); White Blood Cell (WBC) Count 12.8 thou/uL (4.8-10.8)
[2019-02-04 07:40] LABS: Anion Gap 8 mmol/L (10-20); BUN (Urea Nitrogen) 5 mg/dL (7.0-18.7); Calc. Creatinine Clearance 376 mL/min (70-130); Calcium 8.2 mg/dL (7.8-10.44); Carbon Dioxide 36 mmol/L (22-29); Chloride 98 mmol/L (98-107); Estimated GFR-MDRD Greater than 90; Glucose 119 mg/dL (70-105); Potassium 3.7 mmol/L (3.5-5.1); Sodium 138 mmol/L (136-145)
[2019-02-04 08:01] LABS: Band 24 % (5-11); Lymphocytes 9 % (21-51); MDiff Complete? YES; Metamyelocyte 2 % (0-0); Monocytes 7 % (0-10); Myelocyte 2 % (0-0); Neutrophil 54 % (42-75); RBC Morphology Normal; Reactive Lymphocytes 2 % (0-10)
--- NOTE | 2019-02-04 08:25 | PDOC.FM ---
- Subjective Subjective: NAEO. No concerns per nursing. Patient did not use CPAP last night. Patient is resting comfortably in bed. Still endorses tenderness to the abdomen. Spoke with the patient's aunt about her condition. States that the patient had a "trauma" in her past and has been gaining weight ever since. She states that she knows she needs to lose weight and will help facilitate this. - Objective MAR Reviewed: Yes Vital Signs & Weight: Vital Signs (12 hours) Temp Pulse Resp BP Pulse Ox 02/04/19 07:34 98.1 F 95 22 H 133/62 99 Weight Admit Weight 208.1 kg Weight 208.1 kg I&O: 02/03/19 02/04/19 02/05/19 06:59 06:59 06:59 Intake Total 2630 1520 Output Total 1550 Balance 1080 1520 Result Diagrams: 02/04/19 07:04 02/04/19 07:04 Phys Exam - Physical Examination Constitutional: NAD morbid obesity HEENT: moist MMs, sclera anicteric Neck: supple, full ROM Respiratory: no wheezing, no rales, no rhonchi, clear to auscultation bilateral Cardiovascular: RRR, no significant murmur, no rub Gastrointestinal: soft tenderness to lower abdomen Musculoskeletal: pulses present trace edema b/l LE Neurological: non-focal, normal sensation, moves all 4 limbs Psychiatric: normal affect Skin: normal turgor, cap refill <2 seconds Deviation from normal: erythema to lower abd- improved; bullae present on lower abd. Dx/Plan (1) Abdominal wall cellulitis Code(s): L03.311 - CELLULITIS OF ABDOMINAL WALL Status: Acute (2) Hyperglycemia Code(s): R73.9 - HYPERGLYCEMIA, UNSPECIFIED Status: Acute (3) Morbid obesity Code(s): E66.01 - MORBID (SEVERE) OBESITY DUE TO EXCESS CALORIES Status: Chronic (4) Prediabetes Code(s): R73.03 - PREDIABETES Status: Acute - Plan Plan: Pt is a 34 yo F with history of Obesity who presents with subjective fevers and rash on abdomen. #Sepsis 2/2 cellulitis of the abdomen WBC: 21, Tachycardic, Febrile: 104. s/p 4 L of bolus in the ER. Erythema just above the umbilicus with pustules without Drainage. S/p Vanc, Zosyn, and Clinda in the ED. Initial concern for Nec Fascia and could not obtain a CT - evaluted by Dr. Barclay and medicine attending and agreed unlikely. Patient hospitalized in 08/2018 for abdominal wall cellulitis and was treated with vanc/zosyn and sent home with augmentin/penicillin. - Being treated for cellulitis with vanc/zosyn - Will Monitor CBC. WBC downtrended 18 -> 12.8 and no bands. LA and Procal downtrending. - Prelim Bcx gram + cocci, coag neg - await sensitivities. #Mild Hyponatremia, resolved Na: 133 -> 137 -> 138. - fluids d/c'd - Will monitor #Morbid Obesity, BMI 81 - PT/OT to evaluate and treat - HHLSo diet - Diet Consult ordered #Pre-diabetes - A1c 6.3, will advise lifestyle modifications. Possible bariatric surg outpatient, but patient without insurance. - Metformin 500mg HS started. Will titrate up to max dose as tolerated. #likely PRECIOUS - periods of apnea, snoring, and large neck girth - Patient unable to tolerate CPAP mask and put on NC. Will continue to encourage CPAP use at night. #Asymptomatic UTI - Will monitor. No symptoms at this time. Lines: Peripheral Diet: HHLSo Code Status: Full DVT PPx: Lovenox 40, SCDs Dispo: Inpt. LOS >48H. Will monitor vitals. Case discussed with Dr. Hernandez. Addendum - Attending - Attending Attestation Date/Time: 02/04/19 2802 I personally evaluated the patient and discussed the management with Dr. Johnson I agree with the History, Examination, Assessment and Plan documented above with any addition or exceptions noted below. Much improved can de-escalate antibiotic coverage for strep in am. Continue IV antibiotic for now with vancomycin. Patient abdominal wall much improved decreased tenderness erythema and edema will encourage establish outpatient PCP f/u to address weight management, PRECIOUS, prediabetes and mental health issues.
[2019-02-04] MEDS: Enoxaparin Sodium 40 MG/0.4 ML SYRINGE SC SCH (08:28)
[2019-02-04] MEDS ORDERED: Nystatin Powder 15 GM BOT TOP PRN (11:15)
[2019-02-04] MEDS: Nystatin Powder 15 GM BOT TOP SCH ×2 (11:37→12:26)
[2019-02-04 11:54] LABS: Vancomycin, Trough 15.3 ug/mL
[2019-02-04] MEDS: Vancomycin 1.5 GRAM/300 ML BAG 1.5 GM in Premix Bag 1 BAG IVPB SCH ×2 (12:21→20:32)
[2019-02-04] MEDS: valACYclovir 500 MG TAB PO SCH ×2 (13:59→21:59)
[2019-02-04] MEDS: metFORMIN 500 MG TAB PO SCH (20:30)
[2019-02-05] MEDS: Nystatin Powder 15 GM BOT TOP SCH ×2 (00:01→13:14)
[2019-02-05] MEDS: Piperacillin/Tazobactam 3.375 GM in Sodium Chloride 0.9% 100 ML IVPB SCH ×3 (02:37→13:15)
[2019-02-05] MEDS ORDERED: Enoxaparin Sodium 40 MG/0.4 ML SYRINGE ONE (07:07)
[2019-02-05] MEDS ORDERED: Piperacillin/Tazobactam 3.375 GM VIAL ONE (07:07)
[2019-02-05] MEDS: valACYclovir 500 MG TAB PO SCH (12:47)
[2019-02-05] MEDS: Enoxaparin Sodium 40 MG/0.4 ML SYRINGE SC SCH (12:47)
[2019-02-05] MEDS: Vancomycin 1.5 GRAM/300 ML BAG 1.5 GM in Premix Bag 1 BAG IVPB SCH (14:34)
[2019-02-05 16:38] VITALS: BP 165/98; TEMP 97.5
--- NOTE | 2019-02-06 06:01 | DIS ---
DATE OF ADMISSION: 02/01/2019 DATE OF DISCHARGE: 02/05/2019 RESIDENT: Cha Johnson MD. ADMITTING ATTENDING: Sina Kraus MD. DISCHARGE ATTENDING: Jian Hernandez MD. CONSULTS: PT/OT, Wound Care, Dietitian, Case Management. PROCEDURES: None. DISCHARGE MEDICATIONS: 1. Metformin 1000 mg oral every evening. 2. Nystatin powder 1 g topical every 6 hours. 3. Bactrim DS one tab oral twice daily for 7 days. Discontinued medications: None. PRIMARY DIAGNOSES: 1. Sepsis, secondary to cellulitis of the abdomen. 2. Hyponatremia, resolved. 3. Morbid obesity. 4. Prediabetes. 5. Asymptomatic urinary tract infection. SECONDARY DIAGNOSIS: Obstructive sleep apnea. HISTORY OF PRESENT ILLNESS/HOSPITAL COURSE: This is a 34-year-old female with history of morbid obesity, who presented to the ER with a chief complaint of fevers and a rash in her abdomen. The patient stated that this developed over the course of about a week. The patient had a staph infection of the abdomen in July when she was hospitalized for 1 week and was on antibiotics for a month. In the ER, the patient was given vancomycin, Zosyn, and clindamycin as well as 4 L bolus of fluids. The patient was admitted to the medical floor for treatment of abdominal cellulitis. Of note, on admission, the patient's white count was 18, and has downtrended throughout her stay. The patient's procalcitonin was also noted to be 5.92, which downtrended to 3.16. Wound Care was consulted to help with the patient's abdominal cellulitis. The patient's hyponatremia resolved on the second day of her stay. The patient has morbid obesity with a BMI of 82.8. Dietitian was consulted to help the patient understand healthy diet modifications. She was found to have an A1c of 6.3. PT and OT were consulted as well. Recommended that the patient make lifestyle changes such as diet and exercise in order to lose weight if she has life-threatening morbid obesity. The patient also likely has PRECIOUS. She was observed to have periods of apnea as well as snoring and she does have a large neck girth. It was attempted to start CPAP with the patient at night, but she did not tolerate this well. The patient was also started on metformin 500 mg at night for 2 days and was advanced to 1000 mg at night for her prediabetes. Over the course of her stay, the abdominal wall cellulitis did improve. The erythema improved and the wounds were no longer draining. She was discharged on oral antibiotics and to continue the metformin. She was given information of the [facility] and told to follow up there within 1 week. DISPOSITION: Stable. DISCHARGE INSTRUCTIONS: 1. Location: Home. 2. Activity: Ad edd. 3. Diet: Heart healthy. 4. Followup: Follow up with [facility] within 7 days. Job ID: [id number] [id number]
[2019-02-06] MEDS ORDERED: FLU VACC QS2019-20(6MOS UP)/PF 60 MCG/0.5 ML SYRINGE IM ONE (13:15)
== END 2019-02-05 16:42 | disposition home or self-care (01) | DRG 872 ==
LOC: ERS 16:44 → T4-A 22:59
PROVIDERS: ADMIT Family Medicine; ATTEND Family Medicine
DX: A41.9 Sepsis, unspecified organism (principal); L03.311 Cellulitis of abdominal wall; E87.1 Hypo-osmolality and hyponatremia; Z68.45 Body mass index [BMI] 70 or greater, adult; N39.0 Urinary tract infection, site not specified; E66.01 Morbid (severe) obesity due to excess calories; G47.33 Obstructive sleep apnea (adult) (pediatric); Z79.899 Other long term (current) drug therapy; L30.4 Erythema intertrigo; R73.03 Prediabetes
CPT/HCPCS: 36415; 80048; 80053; 80202; 83036; 83605; 84145; 85025; 85060; 85520; 86140; 87040; 90471; 90686; 93005; 96361; 96365; 96367; G0008; J1650; J2543; J3370; J3490; J7050

== ENCOUNTER 2020-07-09 18:44 | Emergency (ER) | payer OTHER, SELFPAY | END 2020-07-09 20:21 | disposition home or self-care (01) | LOC: ERS 18:44 | DX: Z43.1 Encounter for attention to gastrostomy (principal); I10 Essential (primary) hypertension; G47.30 Sleep apnea, unspecified; R73.03 Prediabetes; Z79.899 Other long term (current) drug therapy; Z79.82 Long term (current) use of aspirin | CPT/HCPCS: 31502 ==

== ENCOUNTER 2020-12-05 12:49 | Emergency (ER) | payer SELFPAY | END 2020-12-05 14:09 | disposition home or self-care (01) | LOC: ERS 12:49 | DX: R09.89 Other specified symptoms and signs involving the circulatory and respiratory systems (principal); I10 Essential (primary) hypertension; G47.30 Sleep apnea, unspecified; R73.03 Prediabetes; Z79.52 Long term (current) use of systemic steroids; Z79.899 Other long term (current) drug therapy | CPT/HCPCS: 71045 ==

== ENCOUNTER 2021-05-09 16:21 | Outpatient (CLI) | payer SELFPAY ==
[2021-05-10 03:28] LABS: SARS-CoV-2 PCR by NAA Not Detected (NotDetected)
== END 2021-05-09 16:22 | disposition home or self-care (01) ==
LOC: LABBT 16:21
PROVIDERS: ATTEND Internal Medicine
DX: Z48.813 Encounter for surgical aftercare following surgery on the respiratory system (principal); Z20.822 Contact with and (suspected) exposure to COVID-19; Z93.0 Tracheostomy status
CPT/HCPCS: U0003; U0005

== ENCOUNTER 2021-06-12 20:48 | Emergency (ER) | payer SELFPAY | END 2021-06-12 22:22 | disposition home or self-care (01) | LOC: ERS 20:48 | DX: T17.990A Other foreign object in respiratory tract, part unspecified in causing asphyxiation, initial encounter (principal); I10 Essential (primary) hypertension | CPT/HCPCS: 71045 ==

== ENCOUNTER 2022-01-24 12:10 | Inpatient (IN) | payer SELFPAY ==
[2022-01-24 12:28] LABS: Hemoglobin 13.2 g/dL (12.0-16.0); Mean Corpuscular HGB CONC 30.8 g/dL (32.0-36.0); Mean Corpuscular Hemoglobin 27.6 pg (27.0-31.0); Mean Corpuscular Volume 89.5 fl (78.0-98.0); Mean Platelet Volume 8.5 fL (7.4-10.4); Platelet Count 207 10x3/uL (130-400); RBC Distribution Width 13.1 % (11.5-14.5); Red Blood Cell (RBC) Count 4.79 mill/uL (4.20-5.40); White Blood Cell (WBC) Count 17.2 10x3/uL (4.8-10.8)
[2022-01-24] MEDS ORDERED: Ketorolac Tromethamine 30 MG/ML VIAL ONE (12:29)
[2022-01-24] MEDS ORDERED: Cefepime 2 GM VIAL ONE (12:29)
[2022-01-24] MEDS ORDERED: Vancomycin 1 GM/200 ML (FROZEN) BAG ONE (12:29)
[2022-01-24 12:55] LABS: ALT (SGPT) 32 U/L (8-55); AST (SGOT) 33 U/L (5-34); Albumin 3.7 g/dL (3.5-5.0); Alkaline Phosphatase 52 U/L (40-110); Anion Gap 16 mmol/L (10-20); BUN (Urea Nitrogen) 17 mg/dL (7.0-18.7); Bilirubin, Total 1.6 mg/dL (0.2-1.2); Calc. Creatinine Clearance 0 mL/min (70-130); Carbon Dioxide 27 mmol/L (22-29); Chloride 94 mmol/L (98-107); Estimated GFR 77; Globulin 4.5 g/dL (2.4-3.5); Glucose 108 mg/dL (70-105); Potassium 3.7 mmol/L (3.5-5.1); Protein, Total 8.2 g/dL (6.0-8.3); Sodium 133 mmol/L (136-145)
[2022-01-24 13:17] LABS: Band 40 % (5-11); Lymphocytes 8 % (21-51); MDiff Complete? YES; Metamyelocyte 9 % (0-0); Monocytes 8 % (0-10); Neutrophil 35 % (42-75); Platelet Morphology Comment Appears Adequate; Polychromasia SLIGHT = 2-3 cells (100X) (0-2/hpf); Vacuoles SLIGHT
[2022-01-24] MEDS ORDERED: Ondansetron PF 4 MG/2 ML Vial IVP PRN (13:36)
[2022-01-24] MEDS ORDERED: Acetaminophen 325 MG TAB PO PRN (13:36)
[2022-01-24] MEDS ORDERED: Senokot S 8.6-50 MG TAB PO PRN (13:36)
[2022-01-24] MEDS ORDERED: Calcium Carbonate 500 MG ChewTAB PO PRN (13:36)
[2022-01-24] MEDS ORDERED: Acetaminophen 500 MG TAB ONE (13:37)
[2022-01-24] MEDS ORDERED: Vancomycin 1.5 GRAM/300 ML BAG 1.5 GM in Premix Bag 1 BAG IVPB SCH (14:30)
[2022-01-24 14:59] LABS: SARS-CoV-2 NAA Rapid Test Not Detected (NotDetected)
[2022-01-24 15:22] LABS: Lactic Acid 2.8 mmol/L (0.5-2.2)
[2022-01-24] MEDS: Sodium Chloride 0.9% 1,000 ML IV SCH (15:25)
[2022-01-24] MEDS ORDERED: Metoprolol Tartrate 25 MG TAB PO SCH (21:00)
[2022-01-24] MEDS ORDERED: Dexmedetomidine In 0.9 % NaCl 100 ML IVPB SCH (21:00)
[2022-01-25] MEDS: Cefepime 2 GM in Sodium Chloride 0.9% 100 ML IVPB SCH ×2 (00:19→12:41)
[2022-01-25] MEDS: VANCOMYCIN 2 GRAM/500 ML BAG 2 GM in Premix Bag 1 BAG IVPB SCH ×2 (01:28→14:36)
[2022-01-25] MEDS: Sodium Chloride 0.9% 1,000 ML IV SCH ×2 (05:31→14:36)
[2022-01-25 06:43] LABS: Band 50 % (5-11); Hemoglobin 13.3 g/dL (12.0-16.0); Lymphocytes 5 % (21-51); MDiff Complete? YES; Mean Corpuscular Hemoglobin 28.2 pg (27.0-31.0); Mean Corpuscular Volume 90.9 fl (78.0-98.0); Mean Platelet Volume 8.5 fL (7.4-10.4); Metamyelocyte 3 % (0-0); Monocytes 7 % (0-10); Neutrophil 34 % (42-75); Platelet Count 191 10x3/uL (130-400); RBC Distribution Width 13.3 % (11.5-14.5); Red Blood Cell (RBC) Count 4.71 mill/uL (4.20-5.40); Vacuoles SLIGHT; White Blood Cell (WBC) Count 16.4 10x3/uL (4.8-10.8)
[2022-01-25 07:09] LABS: ALT (SGPT) 30 U/L (8-55); AST (SGOT) 37 U/L (5-34); Albumin 3.5 g/dL (3.5-5.0); Alkaline Phosphatase 55 U/L (40-110); Anion Gap 14 mmol/L (10-20); BUN (Urea Nitrogen) 14 mg/dL (7.0-18.7); Bilirubin, Total 1.2 mg/dL (0.2-1.2); Calc. Creatinine Clearance 300 mL/min (70-130); Calcium 8.6 mg/dL (7.8-10.44); Carbon Dioxide 26 mmol/L (22-29); Chloride 99 mmol/L (98-107); Estimated GFR 101; Globulin 4.5 g/dL (2.4-3.5); Glucose 108 mg/dL (70-105); Potassium 4.1 mmol/L (3.5-5.1); Sodium 135 mmol/L (136-145)
[2022-01-25] MEDS: Clopidogrel Bisulfate 75 MG TAB PO SCH (09:14)
[2022-01-25] MEDS: Aspirin Chewable 81 MG TAB PO SCH (09:14)
[2022-01-25] MEDS: Enoxaparin Sodium 40 MG/0.4 ML SYRINGE SC SCH (09:38)
[2022-01-25] MEDS: Pantoprazole 40 MG VIAL IVP SCH (11:11)
[2022-01-25] MEDS ORDERED: GUAIFENESIN SF SOLN 200 MG/10 ML UDCUP PO SCH (23:45)
[2022-01-26] MEDS: Cefepime 2 GM in Sodium Chloride 0.9% 100 ML IVPB SCH ×2 (00:07→11:39)
[2022-01-26] MEDS: VANCOMYCIN 2 GRAM/500 ML BAG 2 GM in Premix Bag 1 BAG IVPB SCH (01:19)
[2022-01-26 01:32] LABS: Vancomycin, Trough 13.5 ug/mL
[2022-01-26 04:17] LABS: Anion Gap 13 mmol/L (10-20); BUN (Urea Nitrogen) 11 mg/dL (7.0-18.7); Calc. Creatinine Clearance 350 mL/min (70-130); Carbon Dioxide 28 mmol/L (22-29); Chloride 101 mmol/L (98-107); Estimated GFR 114; Glucose 97 mg/dL (70-105); Magnesium 1.8 mg/dL (1.6-2.6); Potassium 3.8 mmol/L (3.5-5.1); Sodium 138 mmol/L (136-145)
[2022-01-26 09:09] LABS: Band 31 % (5-11); Hemoglobin 11.3 g/dL (12.0-16.0); Lymphocytes 17 % (21-51); MDiff Complete? YES; Mean Corpuscular HGB CONC 30.8 g/dL (32.0-36.0); Mean Corpuscular Hemoglobin 27.9 pg (27.0-31.0); Mean Corpuscular Volume 90.7 fl (78.0-98.0); Mean Platelet Volume 8.5 fL (7.4-10.4); Metamyelocyte 1 % (0-0); Monocytes 2 % (0-10); Neutrophil 49 % (42-75); Platelet Count 173 10x3/uL (130-400); Platelet Morphology Comment Appears Adequate; RBC Distribution Width 13.1 % (11.5-14.5); RBC Morphology Normal; Red Blood Cell (RBC) Count 4.06 mill/uL (4.20-5.40); White Blood Cell (WBC) Count 15.2 10x3/uL (4.8-10.8)
[2022-01-26] MEDS: Aspirin Chewable 81 MG TAB PO SCH (09:24)
[2022-01-26] MEDS: Clopidogrel Bisulfate 75 MG TAB PO SCH (09:24)
[2022-01-26] MEDS: Enoxaparin Sodium 40 MG/0.4 ML SYRINGE SC SCH (09:25)
[2022-01-26] MEDS: Pantoprazole 40 MG VIAL IVP SCH (09:26)
[2022-01-26] MEDS: GUAIFENESIN SF SOLN 200 MG/10 ML UDCUP PO PRN (15:45)
[2022-01-26] MEDS: Cefdinir 300 MG CAP PO SCH (23:00)
[2022-01-27] MEDS: Cefdinir 300 MG CAP PO SCH (10:43)
[2022-01-27] MEDS: GUAIFENESIN SF SOLN 200 MG/10 ML UDCUP PO PRN (10:43)
[2022-01-27] MEDS: Clopidogrel Bisulfate 75 MG TAB PO SCH (11:33)
[2022-01-27] MEDS: Enoxaparin Sodium 40 MG/0.4 ML SYRINGE SC SCH (11:35)
[2022-01-27] MEDS: Pantoprazole 40 MG VIAL IVP SCH (11:37)
[2022-01-27] MEDS: Aspirin Chewable 81 MG TAB PO SCH (11:37)
[2022-01-28] MEDS: GUAIFENESIN SF SOLN 200 MG/10 ML UDCUP PO PRN ×2 (00:27→06:02)
[2022-01-28] MEDS: GUAIFENESIN SF SOLN 200 MG/10 ML UDCUP PO SCH ×4 (09:06→20:37)
[2022-01-28] MEDS: Aspirin Chewable 81 MG TAB PO SCH (09:06)
[2022-01-28] MEDS: Pantoprazole 40 MG VIAL IVP SCH (09:06)
[2022-01-28] MEDS: Enoxaparin Sodium 40 MG/0.4 ML SYRINGE SC SCH (20:37)
[2022-01-29] MEDS: GUAIFENESIN SF SOLN 200 MG/10 ML UDCUP PO SCH ×6 (01:13→21:36)
[2022-01-29] MEDS: Enoxaparin Sodium 40 MG/0.4 ML SYRINGE SC SCH ×2 (08:53→21:36)
[2022-01-29] MEDS: Aspirin Chewable 81 MG TAB PO SCH (08:53)
[2022-01-29] MEDS: Furosemide 40 MG TAB PO SCH (08:53)
[2022-01-29] MEDS: Pantoprazole 40 MG VIAL IVP SCH (08:54)
[2022-01-29] MEDS ORDERED: Dexamethasone 4 mg/ml Vial SLOW IVP SCH (13:30)
[2022-01-30] MEDS: GUAIFENESIN SF SOLN 200 MG/10 ML UDCUP PO SCH ×6 (00:45→20:36)
[2022-01-30] MEDS: Aspirin Chewable 81 MG TAB PO SCH (09:40)
[2022-01-30] MEDS: Furosemide 40 MG TAB PO SCH (09:40)
[2022-01-30] MEDS: Pantoprazole 40 MG VIAL IVP SCH (09:40)
[2022-01-30] MEDS: Enoxaparin Sodium 40 MG/0.4 ML SYRINGE SC SCH ×2 (09:40→20:36)
[2022-01-31] MEDS: GUAIFENESIN SF SOLN 200 MG/10 ML UDCUP PO SCH ×6 (01:42→20:53)
[2022-01-31] MEDS: Furosemide 40 MG TAB PO SCH (09:19)
[2022-01-31] MEDS: Enoxaparin Sodium 40 MG/0.4 ML SYRINGE SC SCH ×2 (09:19→20:53)
[2022-01-31] MEDS: Aspirin Chewable 81 MG TAB PO SCH (09:19)
[2022-01-31] MEDS: Lansoprazole 15 MG/5 ML (BATCHED)UDCUP PO SCH (09:41)
[2022-01-31 12:09] VITALS: BMI 81.4
[2022-01-31] MEDS: Penicillin V Potassium 250 MG TAB PO SCH (20:53)
[2022-01-31] MEDS ORDERED: Sulfameth/Trimethoprim DS 800-160mg TAB PO SCH (21:00)
[2022-02-01] MEDS: GUAIFENESIN SF SOLN 200 MG/10 ML UDCUP PO SCH ×6 (03:17→20:32)
[2022-02-01 05:00] LABS: #Eosinphils 0.2 thou/uL (0.0-0.7); #Lymphocytes 2.4 thou/uL (1.20-3.40); #Monocytes 0.5 thou/uL (0.11-0.59); #Neutrophils 4.6 thou/uL (1.40-6.50); %Basophils 0.6 % (0.0-1.0); %Eosinophils 2.8 % (0.0-10.0); %Lymphocytes 30.7 % (21.0-51.0); %Monocytes 6.1 % (0.0-10.0); %Neutrophils 59.9 % (42.0-75.0); Mean Corpuscular HGB CONC 31.5 g/dL (32.0-36.0); Mean Corpuscular Hemoglobin 28.5 pg (27.0-31.0); Mean Corpuscular Volume 90.4 fl (78.0-98.0); Mean Platelet Volume 7.9 fL (7.4-10.4); Platelet Count 272 10x3/uL (130-400); RBC Distribution Width 13.3 % (11.5-14.5); Red Blood Cell (RBC) Count 4.55 mill/uL (4.20-5.40); White Blood Cell (WBC) Count 7.7 10x3/uL (4.8-10.8)
[2022-02-01 07:37] VITALS: TEMP 98
[2022-02-01] MEDS: Aspirin Chewable 81 MG TAB PO SCH (08:45)
[2022-02-01] MEDS: Lansoprazole 15 MG/5 ML (BATCHED)UDCUP PO SCH (08:45)
[2022-02-01] MEDS: Penicillin V Potassium 250 MG TAB PO SCH ×2 (08:45→20:32)
[2022-02-01] MEDS: Furosemide 40 MG TAB PO SCH (08:46)
[2022-02-01] MEDS: Enoxaparin Sodium 40 MG/0.4 ML SYRINGE SC SCH ×2 (08:46→20:32)
[2022-02-01 16:02] VITALS: BP 129/81
== END 2022-02-01 21:20 | disposition home or self-care (01) | DRG 205 ==
LOC: SUATTDRO 12:10 → ERS 12:10 → ERHOLD 13:40 → IMCU/EMU 19:24 → 2NO 01-30 21:05
PROVIDERS: ADMIT Internal Medicine; ATTEND Family Medicine
PROC: 3E03329 Introduction of Other Anti-infective into Peripheral Vein, Percutaneous Approach (ICD-10-PCS; principal; 2022-01-24)
PROC: 0B21XFZ Change Tracheostomy Device in Trachea, External Approach (ICD-10-PCS; 2022-01-29)
DX: J95.02 Infection of tracheostomy stoma (principal); A41.52 Sepsis due to Pseudomonas; A41.59 Other Gram-negative sepsis; G93.41 Metabolic encephalopathy; J96.21 Acute and chronic respiratory failure with hypoxia; J15.9 Unspecified bacterial pneumonia; E66.2 Morbid (severe) obesity with alveolar hypoventilation; Z68.45 Body mass index [BMI] 70 or greater, adult; E87.20 Acidosis, unspecified; I96 Gangrene, not elsewhere classified; J95.01 Hemorrhage from tracheostomy stoma; Z20.822 Contact with and (suspected) exposure to COVID-19; E78.5 Hyperlipidemia, unspecified; I10 Essential (primary) hypertension; I25.10 Atherosclerotic heart disease of native coronary artery without angina pectoris; Z99.81 Dependence on supplemental oxygen; Z79.82 Long term (current) use of aspirin; Z79.899 Other long term (current) drug therapy; Z79.51 Long term (current) use of inhaled steroids
CPT/HCPCS: 36415; 36416; 71045; 80048; 80053; 80202; 82805; 83605; 83735; 84484; 85025; 87040; 87070; 87077; 87149; 87186; 87205; 87811; 93005; 94640; 96365; 96366; 96375; 97139; C9113; J0692; J1100; J1650; J1885; J3370; J3370-JW; J3490; J7050; J7620; U0002

== ENCOUNTER 2022-04-30 22:29 | Inpatient (IN) | payer SELFPAY ==
[~2022-04-30 22:29] MED LIST: Iopamidol-370 76% 500 ML 1 ML ONE
[2022-04-30] MEDS ORDERED: Ipratropium/Albuterol 3 ML NEB ONE (22:56)
[2022-04-30 23:08] LABS: #Eosinphils 0.2 thou/uL (0.0-0.7); #Lymphocytes 2.5 thou/uL (1.20-3.40); #Monocytes 0.5 thou/uL (0.11-0.59); #Neutrophils 4.1 thou/uL (1.40-6.50); %Basophils 0.4 % (0.0-1.0); %Eosinophils 2.3 % (0.0-10.0); %Lymphocytes 34.1 % (21.0-51.0); %Neutrophils 56.2 % (42.0-75.0); Hemoglobin 14.6 g/dL (12.0-16.0); Mean Corpuscular HGB CONC 33.4 g/dL (32.0-36.0); Mean Corpuscular Hemoglobin 29.3 pg (27.0-31.0); Mean Corpuscular Volume 87.7 fl (78.0-98.0); Mean Platelet Volume 8.7 fL (7.4-10.4); Platelet Count 272 10x3/uL (130-400); RBC Distribution Width 13.1 % (11.5-14.5); Red Blood Cell (RBC) Count 4.97 mill/uL (4.20-5.40); White Blood Cell (WBC) Count 7.3 10x3/uL (4.8-10.8)
[2022-04-30 23:30] LABS: ALT (SGPT) 30 U/L (8-55); AST (SGOT) 32 U/L (5-34); Albumin 4.1 g/dL (3.5-5.0); Alkaline Phosphatase 59 U/L (40-110); Anion Gap 15 mmol/L (10-20); BUN (Urea Nitrogen) 5 mg/dL (7.0-18.7); Bilirubin, Total 0.6 mg/dL (0.2-1.2); Calc. Creatinine Clearance 0 mL/min (70-130); Calcium 9.1 mg/dL (7.8-10.44); Carbon Dioxide 23 mmol/L (22-29); Chloride 106 mmol/L (98-107); Estimated GFR 114; Globulin 4.3 g/dL (2.4-3.5); Glucose 108 mg/dL (70-105); Potassium 4.2 mmol/L (3.5-5.1); Protein, Total 8.4 g/dL (6.0-8.3); Sodium 140 mmol/L (136-145)
[2022-04-30 23:48] LABS: SARS-CoV-2 NAA Rapid Test Not Detected (NotDetected)
[2022-05-01 00:38] LABS: Bilirubin Negative (Negative); Blood, Urine Negative (Negative); Clarity Clear (Clear); Glucose, Urine (Dipstick) Normal (Negative); Ketone, Urine Negative (Negative); Leukocyte Negative Leu/uL (Negative); Nitrite Negative (Negative); Protein, Urine (Dipstick) Negative (Neg-Trace); Urobilinogen Normal mg/dL (Less than 2)
[2022-05-01 00:41] LABS: Pregnancy Test - Urine (BHCG) Negative (Negative); Pregu Control Background? CLEAR/WHITE (CLR/WHITE); Pregu Control Bar Appear? YES (CONTROL BAR); Specific Gravity Greater than 1.060 (1.002-1.036)
[2022-05-01 00:42] LABS: Specific Gravity, Urine Greater than 1.060 (1.002-1.036)
[2022-05-01 01:09] LABS: Actual Bicarbonate (HCO3v) 29 mEq/L (22-28); Base Excess 2.6 mEq/L (-2.0 to +3.0); Calcium, Ionized (venous) 1.11 mmol/L (1.16-1.32); Chloride (VBG) 104 mmol/L (98-106); Hemoglobin (Hb) 13.7 g/dL (11.7-15.5); Potassium (VBG) 3.68 mmol/L (3.70-5.30); Sodium 141.2 mmol/L (133-146); pH (venous) 7.37 (7.32-7.43)
[2022-05-01] MEDS ORDERED: Ondansetron ODT 4 MG TAB PO PRN (02:30)
[2022-05-01] MEDS ORDERED: Guaifenesin DM 100-10/5 ML UDCUP PO PRN (02:30)
[2022-05-01] MEDS ORDERED: Acetaminophen 325 MG TAB PO PRN (02:30)
[2022-05-01] MEDS ORDERED: Ondansetron PF 4 MG/2 ML Vial IVP PRN (02:30)
[2022-05-01] MEDS ORDERED: Furosemide 40 MG/4 ML VIAL ONE (02:55)
[2022-05-01] MEDS ORDERED: Piperacillin/Tazobactam 4.5 GM in Sodium Chloride 0.9% 100 ML IVPB SCH (03:00)
[2022-05-01 03:05] LABS: Magnesium 2.2 mg/dL (1.6-2.6)
[2022-05-01] MEDS: Ipratropium/Albuterol 3 ML NEB NEB SCH ×6 (03:07→22:19)
[2022-05-01 05:41] LABS: Hemoglobin A1c 5.6 % (4.0-6.0)
[2022-05-01] MEDS ORDERED: Furosemide 20 MG/2 ML VIAL SLOW IVP SCH (06:00)
[2022-05-01] MEDS: Furosemide 20 MG/2 ML VIAL SLOW IVP SCH ×2 (08:23→14:24)
[2022-05-01] MEDS ORDERED: Furosemide 20 MG/2 ML VIAL ONE (08:24)
[2022-05-01] MEDS ORDERED: Penicillin V Potassium 250 MG TAB PO SCH ×2 (09:00→21:00)
[2022-05-01] MEDS ORDERED: Vancomycin 1 GM in Premix Bag 1 BAG IVPB SCH (10:15)
[2022-05-01] MEDS ORDERED: Ipratropium/Albuterol 3 ML NEB ONE (10:23)
[2022-05-01] MEDS ORDERED: Azithromycin 500 MG VIAL ONE (10:25)
[2022-05-01] MEDS: Azithromycin 500 MG in Sodium Chloride 0.9% 250 ML 250 ML IVPB SCH (10:36)
[2022-05-01] MEDS ORDERED: Vancomycin 1 GM/200 ML (FROZEN) BAG ONE (11:42)
[2022-05-01] MEDS: Vancomycin 1 GM in Premix Bag 1 BAG IVPB SCH ×2 (11:57→18:14)
[2022-05-01 16:33] VITALS: BMI 75.3
[2022-05-01] MEDS: Cefepime 2 GM in Sodium Chloride 0.9% 100 ML IVPB SCH (20:49)
[2022-05-02] MEDS: Vancomycin 1 GM in Premix Bag 1 BAG IVPB SCH ×2 (02:17→11:59)
[2022-05-02] MEDS: Ipratropium/Albuterol 3 ML NEB NEB SCH ×6 (02:20→23:11)
[2022-05-02 08:13] LABS: #Eosinphils 0.3 thou/uL (0.0-0.7); #Lymphocytes 0.8 thou/uL (1.20-3.40); #Monocytes 0.5 thou/uL (0.11-0.59); #Neutrophils 3.4 thou/uL (1.40-6.50); %Basophils 0.4 % (0.0-1.0); %Eosinophils 5.1 % (0.0-10.0); %Lymphocytes 16.7 % (21.0-51.0); %Monocytes 10.4 % (0.0-10.0); %Neutrophils 67.5 % (42.0-75.0); Hemoglobin 13.5 g/dL (12.0-16.0); Mean Corpuscular HGB CONC 31.1 g/dL (32.0-36.0); Mean Corpuscular Hemoglobin 27.5 pg (27.0-31.0); Mean Corpuscular Volume 88.3 fl (78.0-98.0); Mean Platelet Volume 8.6 fL (7.4-10.4); Platelet Count 227 10x3/uL (130-400); RBC Distribution Width 13.2 % (11.5-14.5)
[2022-05-02 08:30] LABS: Anion Gap 14 mmol/L (10-20); BUN (Urea Nitrogen) 5 mg/dL (7.0-18.7); Calc. Creatinine Clearance 294 mL/min (70-130); Calcium 8.9 mg/dL (7.8-10.44); Carbon Dioxide 26 mmol/L (22-29); Chloride 100 mmol/L (98-107); Estimated GFR 111; Glucose 93 mg/dL (70-105); Potassium 3.5 mmol/L (3.5-5.1); Sodium 136 mmol/L (136-145)
[2022-05-02] MEDS: Cefepime 2 GM in Sodium Chloride 0.9% 100 ML IVPB SCH ×2 (08:59→21:11)
[2022-05-02] MEDS: Furosemide 20 MG/2 ML VIAL SLOW IVP SCH (09:00)
[2022-05-02 10:50] LABS: Vancomycin, Trough 13.4 ug/mL
[2022-05-02] MEDS ORDERED: GUAIFENESIN SF SOLN 200 MG/10 ML UDCUP PO PRN (12:25)
[2022-05-02] MEDS: Azithromycin 500 MG in Sodium Chloride 0.9% 250 ML 250 ML IVPB SCH (13:35)
[2022-05-02] MEDS: Penicillin V Potassium 250 MG TAB PO SCH (21:09)
[2022-05-02] MEDS: Metoprolol Tartrate 25 MG TAB PO SCH (21:12)
[2022-05-03] MEDS: Ipratropium/Albuterol 3 ML NEB NEB SCH ×6 (02:56→23:53)
[2022-05-03] MEDS ORDERED: Furosemide 40 MG/4 ML VIAL SLOW IVP SCH (09:00)
[2022-05-03] MEDS: Cefepime 2 GM in Sodium Chloride 0.9% 100 ML IVPB SCH ×2 (09:25→21:18)
[2022-05-03] MEDS: Metoprolol Tartrate 25 MG TAB PO SCH ×2 (09:26→21:17)
[2022-05-03] MEDS: Furosemide 40 MG TAB PO SCH (09:27)
[2022-05-03] MEDS: Aspirin Chewable 81 MG TAB PO SCH (09:27)
[2022-05-03] MEDS: Penicillin V Potassium 250 MG TAB PO SCH ×2 (09:27→21:17)
[2022-05-03] MEDS: Clopidogrel Bisulfate 75 MG TAB PO SCH (09:41)
[2022-05-03 10:27] LABS: Vancomycin, Trough 3.8 ug/mL
[2022-05-03] MEDS: Azithromycin 500 MG in Sodium Chloride 0.9% 250 ML 250 ML IVPB SCH (11:12)
[2022-05-04] MEDS: Ipratropium/Albuterol 3 ML NEB NEB SCH ×2 (06:34→13:52)
[2022-05-04] MEDS: Aspirin Chewable 81 MG TAB PO SCH (09:06)
[2022-05-04] MEDS: Clopidogrel Bisulfate 75 MG TAB PO SCH (09:06)
[2022-05-04] MEDS: Furosemide 40 MG TAB PO SCH (09:06)
[2022-05-04] MEDS: Penicillin V Potassium 250 MG TAB PO SCH (09:06)
[2022-05-04] MEDS: Metoprolol Tartrate 25 MG TAB PO SCH (09:06)
[2022-05-04 09:07] VITALS: TEMP 98
[2022-05-04 09:46] LABS: #Eosinphils 0.3 thou/uL (0.0-0.7); #Lymphocytes 1.4 thou/uL (1.20-3.40); #Monocytes 0.5 thou/uL (0.11-0.59); #Neutrophils 2.5 thou/uL (1.40-6.50); %Basophils 0.9 % (0.0-1.0); %Eosinophils 6.2 % (0.0-10.0); %Lymphocytes 30.7 % (21.0-51.0); %Neutrophils 52.3 % (42.0-75.0); Hemoglobin 14.4 g/dL (12.0-16.0); Mean Corpuscular HGB CONC 31.7 g/dL (32.0-36.0); Mean Corpuscular Hemoglobin 28.1 pg (27.0-31.0); Mean Corpuscular Volume 88.6 fl (78.0-98.0); Mean Platelet Volume 8.4 fL (7.4-10.4); Platelet Count 236 10x3/uL (130-400); RBC Distribution Width 13.2 % (11.5-14.5); Red Blood Cell (RBC) Count 5.14 mill/uL (4.20-5.40); White Blood Cell (WBC) Count 4.7 10x3/uL (4.8-10.8)
[2022-05-04 10:04] LABS: Anion Gap 15 mmol/L (10-20); Calcium 9.8 mg/dL (7.8-10.44); Carbon Dioxide 22 mmol/L (22-29); Chloride 102 mmol/L (98-107); Potassium 3.7 mmol/L (3.5-5.1); Sodium 135 mmol/L (136-145)
[2022-05-04 10:22] LABS: BUN (Urea Nitrogen) 6 mg/dL (7.0-18.7); Calc. Creatinine Clearance 321 mL/min (70-130); Estimated GFR 115; Glucose 96 mg/dL (70-105)
[2022-05-04 16:06] VITALS: BP 118/72
== END 2022-05-04 16:00 | disposition home or self-care (01) | DRG 193 ==
LOC: ERS 22:29 → ERHOLD 05-01 02:37 → T4-A 05-01 13:30
PROVIDERS: ADMIT Internal Medicine; ATTEND Family Medicine
DX: J18.9 Pneumonia, unspecified organism (principal); J96.21 Acute and chronic respiratory failure with hypoxia; J96.22 Acute and chronic respiratory failure with hypercapnia; E66.2 Morbid (severe) obesity with alveolar hypoventilation; Z68.45 Body mass index [BMI] 70 or greater, adult; I10 Essential (primary) hypertension; F41.9 Anxiety disorder, unspecified; F32.A Depression, unspecified; Z20.822 Contact with and (suspected) exposure to COVID-19; M79.3 Panniculitis, unspecified; I25.10 Atherosclerotic heart disease of native coronary artery without angina pectoris; K80.20 Calculus of gallbladder without cholecystitis without obstruction; E78.5 Hyperlipidemia, unspecified; Z79.899 Other long term (current) drug therapy; Z79.51 Long term (current) use of inhaled steroids; Z79.82 Long term (current) use of aspirin; Z99.81 Dependence on supplemental oxygen; Z93.0 Tracheostomy status
CPT/HCPCS: 36415; 71045; 71275; 74177; 80048; 80053; 80202; 81003; 81025; 82805; 83036; 83605; 83735; 83880; 84145; 84484; 85025; 86140; 87040; 87070; 87086; 87205; 93005; 94640; 96365; 96367; 96375; J0456; J0692; J1650; J1940; J1956; J2543; J3370-JW; J3490; J7050; J7620; Q9967

== ENCOUNTER 2022-11-09 12:54 | Emergency (ER) | payer SELFPAY ==
[2022-11-09 13:41] LABS: #Eosinphils 0.2 thou/uL (0.0-0.7); #Monocytes 0.5 thou/uL (0.11-0.59); #Neutrophils 3.3 thou/uL (1.40-6.50); %Basophils 0.7 % (0.0-1.0); %Eosinophils 3.6 % (0.0-10.0); %Monocytes 8.5 % (0.0-10.0); Hematocrit 42.6 % (36.0-47.0); Hemoglobin 13.2 g/dL (12.0-16.0); Mean Corpuscular Hemoglobin 27.3 pg (27.0-31.0); Mean Corpuscular Volume 88.2 fl (78.0-98.0); Mean Platelet Volume 10.9 fL (7.4-10.4); Platelet Count 159 10x3/uL (130-400); RBC Distribution Width 13.1 % (11.5-14.5); Red Blood Cell (RBC) Count 4.83 mill/uL (4.20-5.40); White Blood Cell (WBC) Count 5.9 10x3/uL (4.8-10.8)
[2022-11-09 13:45] LABS: ALT (SGPT) 30 U/L (8-55); AST (SGOT) 33 U/L (5-34); Albumin 3.8 g/dL (3.5-5.0); Alkaline Phosphatase 54 U/L (40-110); Anion Gap 11 mmol/L (10-20); BUN (Urea Nitrogen) 7 mg/dL (7.0-18.7); Bilirubin, Total 0.5 mg/dL (0.2-1.2); Calc. Creatinine Clearance 0 mL/min (70-130); Calcium 9.2 mg/dL (7.8-10.44); Carbon Dioxide 33 mmol/L (22-29); Chloride 98 mmol/L (98-107); Estimated GFR 102; Globulin 4.5 g/dL (2.4-3.5); Glucose 142 mg/dL (70-105); Lipase 9 U/L (8-78); Potassium 4.3 mmol/L (3.5-5.1); Protein, Total 8.3 g/dL (6.0-8.3); Sodium 138 mmol/L (136-145)
[2022-11-09 14:11] LABS: Troponin I Less than 0.010 ng/mL (< 0.028)
[2022-11-09 16:11] LABS: SARS-CoV-2 NAA Rapid Test DETECTED (NotDetected)
[2022-11-09 16:55] LABS: Magnesium 1.9 mg/dL (1.6-2.6)
[2022-11-09 19:12] LABS: Bacteria/HPF None Seen HPF (None Seen); Bilirubin Negative (Negative); Blood, Urine 2+ (Negative); CAUTI Indications for Culture Alt mental st,lethar; Clarity Turbid (Clear); Glucose, Urine (Dipstick) Normal (Negative); Ketone, Urine Negative (Negative); Leukocyte 500 Leu/uL (Negative); Nitrite Negative (Negative); Protein, Urine (Dipstick) 70 mg/dL (Neg-Trace); RBC/HPF 21-50 HPF (0-3); Specific Gravity, Urine 1.025 (1.002-1.036); Squamous Epithelial 21-50 HPF (0-3); Urobilinogen Normal mg/dL (Less than 2); WBC/HPF Greater than 50 HPF (0-3)
[2022-11-09 19:13] LABS: Urine Culture Reflex Yes Yes
== END 2022-11-09 20:59 | disposition home or self-care (01) ==
LOC: ERS 12:54
DX: U07.1 COVID-19 (principal); R30.0 Dysuria; I10 Essential (primary) hypertension; E78.5 Hyperlipidemia, unspecified; Z79.899 Other long term (current) drug therapy; Z79.82 Long term (current) use of aspirin; Z79.01 Long term (current) use of anticoagulants
CPT/HCPCS: 36415; 71045; 71275; 80053; 81001; 83605; 83690; 83735; 83880; 84484; 85025; 87086; 93005; 94760

== ENCOUNTER 2023-09-08 19:33 | Emergency (ER) | payer SELFPAY ==
[2023-09-08 20:06] LABS: #Basophils Less than 0.03 10x3/uL (0.0-0.2); %Basophils 0.1 % (0.0-1.0); %Eosinophils 1.8 % (0.0-10.0); %Lymphocytes 29.8 % (21.0-51.0); %Monocytes 10.1 % (0.0-10.0); %Neutrophils 57.9 % (42.0-75.0); Hemoglobin 13.3 g/dL (12.0-16.0); Mean Corpuscular HGB CONC 31.7 g/dL (32.0-36.0); Mean Corpuscular Hemoglobin 28.2 pg (27.0-31.0); Mean Platelet Volume 10.5 fL (7.4-10.4); Platelet Count 207 10x3/uL (130-400); RBC Distribution Width 13.4 % (11.5-14.5); Red Blood Cell (RBC) Count 4.72 mill/uL (4.20-5.40)
[2023-09-08 20:21] LABS: ALT (SGPT) 28 U/L (8-55); AST (SGOT) 25 U/L (5-34); Albumin 3.6 g/dL (3.5-5.0); Alkaline Phosphatase 58 U/L (40-110); Anion Gap 13 mmol/L (10-20); BUN (Urea Nitrogen) 8 mg/dL (7.0-18.7); Bilirubin, Total 0.4 mg/dL (0.2-1.2); Calc. Creatinine Clearance 0 mL/min (70-130); Calcium 8.9 mg/dL (7.8-10.44); Carbon Dioxide 34 mmol/L (22-29); Chloride 99 mmol/L (98-107); Estimated GFR 116; Globulin 4.6 g/dL (2.4-3.5); Glucose 113 mg/dL (70-105); Potassium 3.6 mmol/L (3.5-5.1); Protein, Total 8.2 g/dL (6.0-8.3); Sodium 142 mmol/L (136-145)
[2023-09-08 20:27] LABS: Troponin I Less than 0.010 ng/mL (< 0.028)
[2023-09-08] MEDS ORDERED: Ipratropium/Albuterol 3 ML NEB ONE (20:34)
== END 2023-09-08 21:10 | disposition home or self-care (01) ==
LOC: ERS 19:33
DX: J45.909 Unspecified asthma, uncomplicated (principal); E78.5 Hyperlipidemia, unspecified; I11.0 Hypertensive heart disease with heart failure; I50.9 Heart failure, unspecified; Z79.82 Long term (current) use of aspirin; Z79.899 Other long term (current) drug therapy
CPT/HCPCS: 71045; 80053; 83880; 84484; 85025; 93005; 94760; J7620

== ENCOUNTER 2023-10-01 12:21 | Emergency (ER) | payer OTHER, SELFPAY ==
[2023-10-01] MEDS ORDERED: Ipratropium/Albuterol 3 ML NEB ONE (14:14)
== END 2023-10-01 14:52 | disposition home or self-care (01) ==
LOC: ERS 12:21
DX: Z43.0 Encounter for attention to tracheostomy (principal); I11.0 Hypertensive heart disease with heart failure; I50.9 Heart failure, unspecified; E11.9 Type 2 diabetes mellitus without complications
CPT/HCPCS: 71045; 94640; 94760; J7620